=== PATIENT | male | born 1960 | race Caucasian/White ===

== ENCOUNTER 2016-12-29 20:25 | Emergency (ER) | payer OTHER, SELFPAY ==
[2016-12-29 21:17] LABS: Prothrombin Time 14.5 SEC (12.0-14.7)
[2016-12-29 21:26] LABS: #Basophils 0.1 thou/uL (0.0-0.2); #Eosinphils 0.1 thou/uL (0.0-0.7); #Monocytes 0.9 thou/uL (0.11-0.59); %Basophils 0.9 % (0.0-1.0); %Eosinophils 0.8 % (0.0-10.0); %Lymphocytes 33.3 % (21.0-51.0); %Monocytes 9.7 % (0.0-10.0); Anisocytosis SLIGHT = 6-15 cells (100X) (0-5/hpf); Hematocrit 40.1 % (42.0-52.0); Mean Platelet Volume 10.1 fL (7.4-10.4); Red Blood Cell (RBC) Count 5.54 mill/uL (4.70-6.10)
[2016-12-29 21:36] LABS: ALT (SGPT) 20 U/L (8-55); AST (SGOT) 21 U/L (5-34); Alkaline Phosphatase 72 U/L (40-150); Anion Gap 17 mmol/L (10-20); BUN (Urea Nitrogen) 19 mg/dL (8.4-25.7); CK (CPK) 224 U/L (30-200); Calc. Creatinine Clearance 0 mL/min (70-130); Calcium 9.7 mg/dL (7.8-10.44); Carbon Dioxide 19 mmol/L (22-29); Chloride 106 mmol/L (98-107); Estimated GFR-MDRD 67; Globulin 3.7 g/dL (2.4-3.5); Lipase 22 U/L (8-78); Protein, Total 8.2 g/dL (6.0-8.3)
[2016-12-29 21:40] LABS: Troponin I Less than 0.010 ng/mL (< 0.028)
[2016-12-29] MEDS ORDERED: Lorazepam 2 MG/ML VIAL ONE (21:44)
--- NOTE | 2016-12-29 21:49 | RAD ---
PORTABLE CHEST ONE VIEW: Date: 12-29-16 Time: 8:47 p.m. History: Chest pain. FINDINGS: Comparison is made with exam of 04-16-16. The heart size is normal. The lungs are well expanded without focal areas of consolidation, pneumoth orax, or pleural effusions. There are degenerative changes of the spine. IMPRESSION: No acute process. POS: H
== END 2016-12-30 01:30 | disposition home or self-care (01) ==
LOC: ERS 20:25
DX: F43.9 Reaction to severe stress, unspecified (principal)
CPT/HCPCS: 36415; 71010; 80053; 82553; 83690; 83880; 84484; 85025; 85610; 85730; 93005; 96361; 96374; J2060